=== PATIENT | female | born 1985 | race African-American/Black ===

== ENCOUNTER 2021-08-23 23:55 | Inpatient (IN) | payer OTHER ==
[~2021-08-23] VITALS: Ht 167.6 cm; Wt 74.8 kg
[~2021-08-23 23:55] MED LIST: OXYTOCIN 10 UNITS/ML 1ML ONE
[2021-08-24] MEDS ORDERED: DEXT 5%/LR + PITOCIN 20UNITS/L 1,000 ML IV SCH (00:15)
[2021-08-24] MEDS ORDERED: LIDOCAINE HCL 1% 10 MG/ML 10ML VIAL ONE (00:19)
[2021-08-24] MEDS ORDERED: IBUPROFEN 400MG TABLET PO PRN (00:45)
[2021-08-24] MEDS ORDERED: BENZOCAINE/LANOLIN/ALOE VERA SPRAY TOP PRN (00:45)
[2021-08-24] MEDS ORDERED: DIPHENHYDRAMINE 25MG CAPSULE PO PRN (00:45)
[2021-08-24] MEDS ORDERED: RHO(D) IMMUNE GLOBULIN 300 MCG/SYR IM PRN (00:45)
[2021-08-24] MEDS ORDERED: LIDOCAINE HCL 1% 30ML VIAL (10MG/ML) INFIL SCH (01:00)
[2021-08-24] MEDS ORDERED: PRENATAL VITAMINS (01:13)
[2021-08-24] MEDS: DEXT 5%/LR + PITOCIN 20UNITS/L 1,000 ML IV SCH ×2 (01:33→05:10)
[2021-08-24] MEDS: IBUPROFEN 800MG TABLET PO PRN ×3 (03:00→21:38)
[2021-08-24 03:30] VITALS: BP 113/63
[2021-08-24 04:30] VITALS: BP 110/62
[2021-08-24 04:46] LABS: BASOPHILS % 0.1 % (0.0-2.0); EOSINOPHILS % 0.2 % (0.0-5.0); HEMATOCRIT. 30.8 % (36.0-48.0); HEMOGLOBIN. 10.8 g/dL (12.0-16.0); LYMPHOCYTES % 11.8 % (20.0-50.0); MEAN CORPUSCULAR HEMOGLOBIN 31.7 pg (28.0-32.0); MEAN CORPUSCULAR VOLUME 90.2 fL (81.0-99.0); MEAN PLATELET VOLUME 9.1 fl (7.4-10.4); NEUTROPHILS % 82.9 % (40.0-76.0); PLATELET 172 x1000/uL (130-400); RED BLOOD CELL COUNT 3.42 mill/uL (4.2-5.4); RED CELL DISTRIBUTION WIDTH 13.3 % (11.6-14.6)
[2021-08-24 04:47] LABS: CLARITY URINE CLOUDY (CLEAR); COLOR URINE RED (YELLOW); KETONES URINE NEGATIVE (NEGATIVE); LEUKOCYTE ESTERASE URINE 1+ (NEGATIVE); NITRITE URINE NEGATIVE (NEGATIVE); OCCULT BLOOD URINE 3+ (NEGATIVE); PROTEIN URINE 3+ (NEGATIVE); SPECIFIC GRAVITY URINE 1.008 (1.005-1.030); UROBILINOGEN URINE 0.2 E.U./dL (0.2-1.0)
[2021-08-24 04:59] LABS: INR 0.9; PARTIAL THROMBOPLASTIN TIME 28.6 sec (23.4-31.0)
[2021-08-24 05:19] LABS: *AMPHETAMINES SCREEN URINE NEGATIVE (NEGATIVE); *BARBITURATES SCREEN URINE NEGATIVE (NEGATIVE); *BENZODIAZEPINES SCREEN URINE NEGATIVE (NEGATIVE)
[2021-08-24 05:20] LABS: *COCAINE SCREEN URINE NEGATIVE (NEGATIVE); CANNABINOID URINE SCREEN NEGATIVE (NEGATIVE); METHADONE URINE SCREEN NEGATIVE (NEGATIVE); OPIATES URINE SCREEN NEGATIVE (NEGATIVE); PHENCYCLIDINE URINE SCREEN NEGATIVE (NEGATIVE)
[2021-08-24 05:31] LABS: HEPATITIS B SURFACE ANTIGEN NEGATIVE
[2021-08-24 08:20] VITALS: BP_SYST 96; BP_DIAS 48; BP_DIAS 52
[2021-08-24] MEDS: PRENATAL VIT/FE FUMARATE/FA TABLET PO SCH (08:41)
[2021-08-24 16:25] VITALS: BP 95/56
[2021-08-24 20:00] VITALS: BP 93/51
[2021-08-25 04:00] VITALS: BP 95/55
[2021-08-25 06:56] LABS: BASOPHILS % 0.3 % (0.0-2.0); EOSINOPHILS % 1.7 % (0.0-5.0); HEMATOCRIT. 26.6 % (36.0-48.0); HEMOGLOBIN. 9.5 g/dL (12.0-16.0); LYMPHOCYTES % 31.2 % (20.0-50.0); MEAN CORPUSCULAR HEMOGLOBIN 32.7 pg (28.0-32.0); MEAN CORPUSCULAR VOLUME 91.1 fL (81.0-99.0); MEAN PLATELET VOLUME 9.2 fl (7.4-10.4); NEUTROPHILS % 60.8 % (40.0-76.0); PLATELET 159 x1000/uL (130-400); RED BLOOD CELL COUNT 2.92 mill/uL (4.2-5.4); RED CELL DISTRIBUTION WIDTH 13.5 % (11.6-14.6)
[2021-08-25 07:30] VITALS: BP 94/54
[2021-08-25] MEDS: PRENATAL VIT/FE FUMARATE/FA TABLET PO SCH (08:31)
[2021-08-25] MEDS: FERROUS SULFATE 325MG TABLET PO SCH ×3 (08:31→17:14)
[2021-08-25] MEDS: IBUPROFEN 800MG TABLET PO PRN ×2 (08:32→20:45)
[2021-08-25 16:07] VITALS: BP 103/58
[2021-08-25 20:00] VITALS: BP 98/55
[2021-08-26 04:00] VITALS: BP 96/53
[2021-08-26] MEDS: IBUPROFEN 800MG TABLET PO PRN ×2 (06:12→13:25)
[2021-08-26 08:00] VITALS: BP 92/61
[2021-08-26] MEDS: PRENATAL VIT/FE FUMARATE/FA TABLET PO SCH (08:57)
[2021-08-26] MEDS: FERROUS SULFATE 325MG TABLET PO SCH ×2 (08:57→13:25)
== END 2021-08-26 15:40 | disposition home or self-care (01) | DRG 806 ==
LOC: OBSVTOIN 23:55 → EDBD 23:55 → 8 EST LDRP 23:55 → 8 EST A/PP 08-24 03:19
PROVIDERS: ADMIT Obstetrics & Gynecology; ATTEND Obstetrics & Gynecology
PROC: 10E0XZZ Delivery of Products of Conception, External Approach (ICD-10-PCS; principal; 2021-08-24)
DX: O48.0 Post-term pregnancy (principal); D62 Acute posthemorrhagic anemia; Z37.0 Single live birth; O77.0 Labor and delivery complicated by meconium in amniotic fluid; Z20.822 Contact with and (suspected) exposure to COVID-19; O99.02 Anemia complicating childbirth; Z3A.40 40 weeks gestation of pregnancy; Z88.1 Allergy status to other antibiotic agents
CPT/HCPCS: 36415; 80305; 81003; 85025; 86592; 86703; 86762; 86850; 86900; 87340; 87426; G0378; J2590; J3490